=== PATIENT | male | born 1995 | race Caucasian/White ===

== ENCOUNTER 2023-11-14 09:08 | Emergency (ER) | payer MEDICAID ==
[~2023-11-14] VITALS: Ht 165.1 cm; Wt 108.0 kg
[2023-11-14] MEDS ORDERED: diphenhydrAMINE HCL 50 MG/ML VIAL ONE (09:37)
[2023-11-14] MEDS: diphenhydrAMINE HCL 50 MG/ML VIAL IV ONE (09:52)
[2023-11-14] MEDS: IV NS 0.9% 1,000 ML BAG IV ONE (09:52)
[2023-11-14] MEDS: HEPARIN SODIUM,PORCINE/PF 50 UNIT/5 ML DISP.SYRIN IV ONE (09:53)
[2023-11-14 10:04] LABS: BASOPHILS % (AUTO) 0.4 % (0.0-2.0); EOSINOPHILS % (AUTO) 0.5 % (0.0-6.0); HEMATOCRIT 42 % (39-51); LYMPHOCYTES # (AUTO) 1.4 K/uL (0.8-4.8); MEAN CORPUSCULAR HEMOGLOBIN 29 PG (26.0-33.0); MEAN CORPUSCULAR HGB CONC 34 g/dl (31.0-36.0); MEAN CORPUSCULAR VOLUME 86 fL (80-96); MONOCYTES # (AUTO) 0.7 K/uL (0.1-1.30); MONOCYTES % (AUTO) 11.8 % (2.0-12.0); NEUTROPHILS % (AUTO) 64.3 % (43.0-81.0); PLATELET COUNT (AUTO) 108 K/uL (150-450); RED BLOOD CELL COUNT(AUTO) 4.84 MIL/uL (4.5-6.0); RED CELL DISTRIBUTION WIDTH 12.9 % (11.5-15.0); WHITE BLOOD COUNT (AUTO) 6.2 K/uL (4.3-11.0)
[2023-11-14 10:15] LABS: INR 1.23 (0.91-1.10); PARTIAL THROMBOPLASTIN TIME 30.8 SEC (24.3-34.3); PROTHROMBIN TIME 12.9 SECS (9.2-11.1)
[2023-11-14 10:18] LABS: APPEARANCE,URINE CLEAR (CLEAR); BILIRUBIN,URINE NEGATIVE (NEGATIVE); BLOOD, URINE NEGATIVE Ery/uL (NEGATIVE); COLOR,URINE YELLOW (YELLOW); KETONES,URINE 1+ mg/dL (NEGATIVE); LEUKOCYTE ESTERASE ,URINE NEGATIVE (NEGATIVE); NITRITE, URINE NEGATIVE (NEGATIVE); PH,URINE 7.5 (5.0-8.0); PROTEIN,URINE 1+ mg/dl (NEGATIVE); UGLUCOSE NEGATIVE (NEGATIVE)
[2023-11-14 10:21] LABS: CALCIUM, SERUM 9.1 mg/dL (8.5-10.1); CARBON DIOXIDE 22 mmol/L (21-32); CHLORIDE 110 mmol/L (98-107); CREATININE 0.7 mg/dL (0.6-1.3); GLUCOSE 163 mg/dL (74-106); SODIUM SERUM 143 mmol/L (136-145); UREA NITROGEN, BLOOD 3 mg/dL (7-18)
[2023-11-14 10:26] LABS: ALANINE AMINOTRANSFERASE 115 U/L (12-78); ALBUMIN 2.9 g/dL (3.4-5.0); ALKALINE PHOSPHATASE 86 U/L (46-116); ASPARTATE AMINOTRANSFERASE 50 U/L (15-37); BILIRUBIN,DIRECT 0.1 mg/dL (0.0-0.2); BILIRUBIN,TOTAL 0.4 mg/dL (0.2-1.0); TOTAL PROTEIN, SERUM 7.2 g/dL (6.4-8.2)
[2023-11-14 10:35] LABS: ADD URINE CULTURE NO; BACTERIA,URINE Rare /HPF (None Seen); RBC,URINE 0-2 /HPF (0-2); SQUAMOUS EPITHELIAL CELL,UR Few /HPF (None Seen); WBC,URINE 0-2 /HPF (0-3)
[2023-11-14] MEDS: Sodium Chloride 77 MEQ in IV 10% DEXTROSE 1,000 ML IV STA (10:50)
[2023-11-14 10:52] LABS: SERUM AMMONIA 391 umol/L (11-32)
[2023-11-14] MEDS ORDERED: LORAZEPAM INJ 2 MG/ML VIAL ONE (11:23)
[2023-11-14] MEDS: LORAZEPAM INJ 2 MG/ML VIAL IV ONE (11:30)
[2023-11-14 11:42] LABS: THYROID STIMULATING HORMONE 2.742 uIU/mL (0.358-3.74)
[2023-11-14] MEDS ORDERED: LACTULOSE 10 G/15 ML UDC (PYXIS) ONE (11:50)
[2023-11-14] MEDS: LACTULOSE 10 G/15 ML UDC (PYXIS) GT ONE (12:01)
[2023-11-14 12:27] LABS: ABG BASE EXCESS -0.3 mmol/L; ABG OXYGEN SATURATION 99.3 % (92.0-98.5); ABG PCO2 23.5 mmHg (35.0-45.0); ABG PH 7.549 (7.350-7.450); ABG PO2 605.8 mmHg (75.0-100.0); ABG TOTAL HEMOGLOBIN 15.1 G/dL (13.5-18.0); COHb 0.3 % (0.5-1.5); MetHb 0.3 % (0.0-1.5); O2Hb 98.7 % (94.0-97.0); SITE, ABG Right Radial; VENT MODE, BG 15 LPM NRB 100%
[2023-11-14 13:40] VITALS: TEMP 98.9
[2023-11-14 14:22] VITALS: BP 136/116; O2SAT 10
== END 2023-11-14 14:54 | disposition short-term general hospital (02) ==
LOC: ER 09:11
DX: E72.20 Disorder of urea cycle metabolism, unspecified (principal); E11.9 Type 2 diabetes mellitus without complications; R06.02 Shortness of breath; Z98.890 Other specified postprocedural states; Z20.822 Contact with and (suspected) exposure to COVID-19; Z88.1 Allergy status to other antibiotic agents
CPT/HCPCS: 99291; 96374; 96361; 70450; 71045; 96375; 87426; 93005; 82803; 87804 ×2; 82140; 85025; 80048; 87086; 80076; 81001; 36415; 84443; 84484; 85730; 82962; 36600 ×2; 94799; J2060; J1200; J3490; J7030; A4223; J1642